=== PATIENT | male | born 1970 | race Caucasian/White ===

== ENCOUNTER 2022-02-03 07:36 | Day surgery (SDC) | payer OTHER ==
[~2022-02-03] VITALS: Ht 175.3 cm; Wt 77.1 kg
[~2022-02-03 07:36] MED LIST: LIPITOR40 M1 PO; METFORMIN HCL1000 MG PO; METOPROL TAR25 M1 PO; TRADJENTA5 MG PO
[2022-02-03 09:57] VITALS: BP 128/90
== END 2022-02-03 10:15 | disposition home or self-care (01) | DRG 951 ==
LOC: ENDO 07:36
PROVIDERS: ATTEND Surgery
PROC: 0DBB8ZX Excision of Ileum, Via Natural or Artificial Opening Endoscopic, Diagnostic (ICD-10-PCS; principal; 2022-02-03)
PROC: 0DBN8ZX Excision of Sigmoid Colon, Via Natural or Artificial Opening Endoscopic, Diagnostic (ICD-10-PCS; 2022-02-03)
PROC: 0DBP8ZX Excision of Rectum, Via Natural or Artificial Opening Endoscopic, Diagnostic (ICD-10-PCS; 2022-02-03)
DX: Z12.11 Encounter for screening for malignant neoplasm of colon (principal); K50.00 Crohn's disease of small intestine without complications; D12.5 Benign neoplasm of sigmoid colon; K62.1 Rectal polyp; K64.8 Other hemorrhoids; I10 Essential (primary) hypertension; E11.9 Type 2 diabetes mellitus without complications; Z79.84 Long term (current) use of oral hypoglycemic drugs